=== PATIENT | male | born 1940 | race Caucasian/White ===

== ENCOUNTER 2019-10-07 04:14 | Emergency (ER) | payer OTHER ==
[~2019-10-07] VITALS: Ht 175.3 cm; Wt 114.3 kg
[2019-10-07] MEDS ORDERED: GABA800 PO (05:03)
[2019-10-07] MEDS ORDERED: METH10 PO (05:03)
[2019-10-07] MEDS ORDERED: AMLO5 PO (05:04)
[2019-10-07] MEDS ORDERED: Synthroid200 MCG PO (05:04)
[2019-10-07] MEDS ORDERED: DULCOLAX5 MG PO (05:05)
[2019-10-07] MEDS ORDERED: NYST100000 (05:06)
[2019-10-07 05:21] LABS: Source, Urine Clean Catch
[2019-10-07 05:23] LABS: Bilirubin, Urine Neg (Neg); Blood, Urine 4+ (Neg); Glucose Qualitative, Urine Neg (Neg); Ketones, Urine Neg (Neg); Leukocyte Esterase, Urine 3+ (Neg); Nitrite, Urine Pos (Neg); Protein, Urine 3+ (Neg); Urobilinogen, Urine NORM (Normal)
[2019-10-07 05:27] LABS: Appearance, Urine Cloudy (Clear); Color, Urine Yellow (P-Yellow)
[2019-10-07] MEDS ORDERED: Flomax0.4 MG PO (05:52)
[2019-10-07] MEDS ORDERED: CEPH500 PO (05:52)
[2019-10-07 05:59] LABS: Bacteria Many /hpf; Squamous Epithelial Cells Few /hpf (Few); White Blood Cells, Urine TNTC /hpf (0-5)
== END 2019-10-07 06:28 | disposition home or self-care (01) ==
LOC: ER 04:14
PROVIDERS: Emergency Medicine
DX: N39.0 Urinary tract infection, site not specified (principal); Z79.899 Other long term (current) drug therapy
CPT/HCPCS: 81001; 87077; 87086; 87186; 99283; A9270-GY